=== PATIENT | male | born 1980 | race Caucasian/White ===

== ENCOUNTER 2019-10-30 10:07 | Outpatient (CLI) | payer BC, SELFPAY ==
[2019-10-31 17:22] LABS: COVID-19 RT-PCR Result NEGATIVE (Negative)
== END 2019-10-30 10:27 ==
PROVIDERS: PCP Emergency Medicine; Visit Provider Emergency Medicine
DX: Z11.59 Encounter for screening for other viral diseases (principal)
CPT/HCPCS: U0003

== ENCOUNTER 2020-10-21 10:13 | Outpatient (CLI) | payer BC, SELFPAY ==
[2020-10-21 13:16] LABS: ALT 114 U/L (16-63); AST 35 U/L (15-37); Albumin 4.3 g/dL (3.4-5.0); Alkaline Phosphatase 120 U/L (46-116); Anion Gap 8.6 mmol/L (3-11); BUN 14 mg/dL (7-18); Bilirubin, Total 1.1 mg/dL (0.2-1.0); CO2 28.4 mmol/L (21.0-32.0); Calcium 9.3 mg/dL (8.5-10.1); Calculated LDL 184 mg/dL (<100); Chloride 105 mmol/L (98-107); Cholesterol 261 mg/dL (<200); Ferritin 158 ng/mL (26-388); Glucose 98 mg/dL (74-106); HDL Cholesterol 40 mg/dL (40-60); Potassium 4.2 mmol/L (3.5-5.1); Sodium 142 mmol/L (136-145); Total Protein 7.5 g/dL (6.4-8.2); Triglyceride 185 mg/dL (<150)
== END 2020-10-21 10:14 | disposition home or self-care (01) ==
LOC: LOS 10:13
PROVIDERS: PCP Emergency Medicine; Visit Provider Emergency Medicine
DX: R79.89 Other specified abnormal findings of blood chemistry (principal)
CPT/HCPCS: 36415; 80053; 80061; 82728

== ENCOUNTER 2020-12-02 02:21 | Outpatient (CLI) | payer BC, SELFPAY ==
[2020-12-02 09:14] LABS: Ferritin 166 ng/mL (26-388)
[2020-12-03 12:17] LABS: HBs Antibody, Qual Positive (See Note); Hepatitis B Core Antibody Negative (Negative); Hepatitis B surface Ag Negative (Negative); Hepatitis C Ab w Rflx HCV PCR Negative (Negative)
[2020-12-03 20:39] LABS: Copper, Serum 0.97 mcg/mL (0.75-1.45)
== END 2020-12-02 02:22 | disposition home or self-care (01) ==
LOC: LBO 02:21
PROVIDERS: PCP Emergency Medicine; Visit Provider Emergency Medicine
DX: R94.5 Abnormal results of liver function studies (principal); R79.89 Other specified abnormal findings of blood chemistry
CPT/HCPCS: 36415; 86704; 86706; 86803; 87340; 82525; 82728

== ENCOUNTER 2021-02-25 14:15 | Outpatient (REF) | payer BC, SELFPAY ==
[2021-02-25 15:55] LABS: ALT 242 U/L (16-63); AST 71 U/L (15-37); Albumin 4.4 g/dL (3.4-5.0); Alkaline Phosphatase 157 U/L (46-116); Bilirubin, Direct 0.1 mg/dL (0.0-0.2); Bilirubin, Total 0.8 mg/dL (0.2-1.0); Total Protein 7.6 g/dL (6.4-8.2)
[2021-02-25 16:06] LABS: Calculated LDL 223 mg/dL (<100); Cholesterol 289 mg/dL (<200); HDL Cholesterol 45 mg/dL (40-60); Triglyceride 107 mg/dL (<150)
== END 2021-02-25 14:16 | disposition home or self-care (01) ==
LOC: LBN 14:15
PROVIDERS: PCP Emergency Medicine; Referring Provider Emergency Medicine; Visit Provider Emergency Medicine
DX: R79.89 Other specified abnormal findings of blood chemistry; E78.5 Hyperlipidemia, unspecified
CPT/HCPCS: 80061; 80076

== ENCOUNTER 2021-05-21 01:16 | Outpatient (CLI) | payer BC, SELFPAY ==
[2021-05-21 12:22] LABS: ALT 126 U/L (16-63); AST 41 U/L (15-37); Albumin 4.2 g/dL (3.4-5.0); Bilirubin, Total 0.9 mg/dL (0.2-1.0); Calculated LDL 94 mg/dL (<100); Cholesterol 153 mg/dL (<200); Ferritin 171 ng/mL (26-388); HDL Cholesterol 44 mg/dL (40-60); Triglyceride 76 mg/dL (<150)
[2021-05-21 12:32] LABS: Iron 167 ug/dL (65-175); Total Iron Binding Capacity 335 ug/dL (250-450); Transferrin Sat 50 % (20-55)
[2021-05-21 12:35] LABS: Alkaline Phosphatase 134 U/L (46-116); Bilirubin, Direct 0.2 mg/dL (0.0-0.2)
== END 2021-05-21 01:17 | disposition home or self-care (01) ==
LOC: LBO 01:16
PROVIDERS: PCP Emergency Medicine; Visit Provider Emergency Medicine
DX: E78.5 Hyperlipidemia, unspecified (principal); R79.89 Other specified abnormal findings of blood chemistry
CPT/HCPCS: 36415; 80061; 80076; 82728; 83540; 83550

== ENCOUNTER 2021-08-25 21:15 | Emergency (ER) | payer BC, SELFPAY ==
[2021-08-25 21:22] VITALS: BP 139/94; PULSE 70; RESP 18; TEMP 36.6; O2SAT 99
--- NOTE | 2021-08-25 21:30 | DI.RAD_ITS ---
Exam(s) XR FOREARM LT EXAM: XR FOREARM LT CLINICAL HISTORY: Laceration, R/O Foreign Body. TECHNIQUE: 2D digital imaging was performed. COMPARISON: No exams were available for comparison FINDINGS: Two views No evidence of fracture. No osseous lesions. No radiopaque foreign body. IMPRESSION: No significant findings DATA REPOSITORY: RADIATION DOSE DELIVERED:
--- NOTE | 2021-08-25 21:38 | W.ED.GENAD ---
Discharge Plan Disposition Patient Disposition: HOME Condition: Stable Discharge Details Clinical Impression: Laceration of forearm, left Primary Care Provider: Channing Godinez ED Provider: Marlene Daniels Home Meds and New Rx's Prescriptions: Continued cholecalciferol (vitamin D3) 50 mcg (2,000 unit) capsule 50 mcg PO DAILY 0RF rosuvastatin [Crestor] 10 mg tablet 10 mg PO DAILY Qty: 90 3RF Discharge Instructions Instructions: Laceration (ED) Additional Instructions: Keep clean and dry. After 12 or 24 hours you may wash under running soap and water. Allowed to air dry at least 1 to 2 hours a day. Keep covered if you are outside or working in dirty circumstances. Have sutures removed in 7 days. Return sooner for any signs of infection including increased redness, swelling, increased pain, drainage or concerns. Please take Tylenol or Ibuprofen with food every 4-6 hours as needed for pain and swelling. Follow up with primary care provider in 3-5 days. Return to ED sooner if any worsening or concerns. Increase oral fluids. Referrals: Channing Godinez MD [Primary Care Provider] - Return if symptoms worsen Medical Decision Making 41-year-old male presents to the ER with chief complaint of left forearm laceration which occurred approximately 30 minutes prior to arrival. 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 1 cm linear laceration noted with bleeding controlled. He has full range of motion noted to his wrist and fingers. Circulation sensation intact. Bleeding is controlled upon arrival. Last tetanus vaccination was approximately 9 years ago. Imaging ordered to rule out foreign body. 2141: Wound was anesthetized with 1% lidocaine with epinephrine, patient tolerated well. Tdap ordered. Laceration was repaired with 4-0 Ethilon, 3 simple interrupted sutures placed as noted in the procedure note above. Patient tolerated well. Wound was well approximated. Discussed strict return instructions and home care with patient who verbalizes understanding. This text was generated using Vocabation system, please disregard any oddities of phrase or misspellings. HPI General Mode of arrival: ambulatory. Date/Time Provider Initiated Documentation: 08/25/21 21:20. Limitations to Documentation: no limitations. Information obtained by: patient and RN notes reviewed. HPI Narrative: 41-year-old male presents to the ER with chief complaint of left forearm laceration which occurred approximately 30 minutes prior to arrival. 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 1 cm linear laceration noted with bleeding controlled. He has full range of motion noted to his wrist and fingers. Circulation sensation intact. Bleeding is controlled upon arrival. Last tetanus vaccination was approximately 9 years ago. Related Data Home Medications Medication Instructions Recorded Confirmed cholecalciferol (vitamin D3) 50 50 mcg PO DAILY 01/12/21 07/20/21 mcg (2,000 unit) capsule rosuvastatin 10 mg tablet (Crestor) 10 mg PO DAILY #90 tab 07/01/21 07/20/21 Previous Rx's Medication Instructions Recorded rosuvastatin 10 mg tablet (Crestor) 10 mg PO DAILY #90 tab 07/01/21 Allergies Allergy/AdvReac Type Severity Reaction Status Date / Time No Known Allergies Allergy Verified 07/20/21 09:23 General Stated Complaint: Laceration VITA: 4 Review of Systems All systems reviewed & are unremarkable except as noted in HPI and below Integumentary/Breasts Skin/Breast: Reports wounds PFSH All Active Problems (Updated 08/25/21 @ 22:43 by Marlene Daniels) Laceration of forearm, left (Acute) Cholelithiasis (Acute) Fatty liver disease, nonalcoholic (Acute) Hyperlipidemia (Acute) Right thyroid nodule (Acute) Family history of colon cancer (Acute) Elevated LFTs (Acute) Surgical History H/O removal of cyst Left breast 2003 Family History Mother Essential hypertension Depression Hyperlipidemia Father Colon polyp Sessile serrated adenoma (2010) Tubular adenoma (2009, 2013 ) Hyperplastic 2017 Grandfather Essential hypertension Gastric ulcer with hemorrhage Grandfather Personal history of malignant neoplasm prostate Grandmother Depression Stroke Grandmother Heart disease Maternal Aunt Personal history of malignant neoplasm colon Paternal Aunt , at 51 Colon cancer Social History Smoking/Tobacco Use Status: Never Second Hand Exposure: No Smoking risk assessment performed?: Yes Alcohol Intake: never Drug use: Never Substance use type: does not use Caregiver/Support person: No Household members: spouse and children Housing: house Communication Needs: None Do you need help understanding health information?: Never Pets and animals: Yes Pets and animals: cat(s) Sexually active: Yes Do you think of yourself as: straight/heterosexual Current gender identity: male What is your relationship status?: How often do you talk on the phone with friends or family?: three or more times per week How often do you get together with friends or relatives?: once per week Do you belong to any clubs or organized social groups?: no Panel score (0-1 are the most socially isolated patients): 2 What type of physical activity do you participate in: walking Duration: 45-60 minutes/day Frequency: 3-4 times per week Makayla/Jehovah'S Witness: No preference Special makayla needs: No Seatbelt use: always Helmet use: Yes Helmet use: always Drive intox or ride w/intox airport driver: No Do you feel safe at home: Yes Do you feel safe in your relationship?: Yes Exam Narrative Exam Narrative: Constitutional: Alert and oriented x3. Appears stated age. Normal body habitus. Head: Normocephalic, no trauma. Posterior pharynx WNL, no exudate. Chest: RRR, Normal S1, S2, distal pulses intact. Resp: Lungs clear to auscultation bilaterally, no wheezes, rales, or rhonchi. Musculoskeletal: Normal gait, 5/5 strength to all four extremities. Skin: See extremity exam below. Capillary refill less than 2 sec. Extrem Left upper extremity: elbow/forearm Details: laceration forearm mid anterior Details: linear, involving subcutaneous tissue, with motor nerve function intact and with sensation intact Elbow/forearm/wrist images: 1. Approximately 1 cm laceration Course Vital Signs Vital signs: Vital Signs Temperature 36.6 C 08/25/21 21: Pulse 70 08/25/21 21: Respiratory Rate 18 08/25/21 21: Blood Pressure 139/94 H 08/25/21 21: Pulse Oximetry 99 08/25/21 21: Temperature 36.6 C 08/25/21 21: Temperature Source Tympanic 08/25/21 21: Pulse 70 08/25/21 21:22 Respiratory Rate 18 03/16/22 21:22 Respiratory Effort 08/25/21 21:24 Blood Pressure 139/94 H 08/25/21 21:22 Blood Pressure Position Supine 08/25/21 21:22 Pulse Oximetry 99 08/25/21 21:22 Oxygen Delivery Method Room Air 08/25/21 21:22 Oxygen Flow Rate 0 08/25/21 21:22 Pain Level 6 08/25/21 21:22 Procedures Laceration Laceration 1: Site: upper extremity Side (If applicable): left Size (cm): 1 Description: linear Depth: simple, single layer Local Anesthetic: Lidocaine 1% and with Epi Amount of anesthesia used (mL): 2 Pre-repair: wound explored, irrigated extensively and deep structures intact Skin layer closed with: nylon Size (cm): 4-0 Number of sutures: 3 Technique: simple, interrupted (Wound was irrigated with sterile normal saline and cleaned with chlorhexidine, patient tolerated well)
--- NOTE | 2021-08-25 23:10 | DI.VRAD_ITS ---
PROCEDURE INFORMATION: Exam: XR Left Forearm Exam date and time: 08/25/2021 9:32 PM Age: 41 years old Clinical indication: Injury or trauma; Other: Injury from cooking knife; Arm, lower; Left; Injury date: 08/25/21; Injury details: Laceration, R/O fb TECHNIQUE: Imaging protocol: XR Left forearm. Views: 2 views. COMPARISON: No relevant prior studies available. FINDINGS: Bones/joints: No suspicious osseous lytic or blastic lesion. No discrete or displaced fracture. No joint dislocation. Soft tissues: Soft tissue edema along the ventral aspect of the mid to distal forearm. No radiopaque retained foreign body. IMPRESSION: No radiopaque retained foreign body. Dictated and Authenticated by: Ramón Lee MD. Ordering:FRANCO Rosario MD
== END 2021-08-25 22:47 | disposition home or self-care (01) ==
PROVIDERS: Emergency Provider Registered Nurse Emergency; PCP Family Medicine
DX: S61.512A Laceration without foreign body of left wrist, initial encounter (principal); W26.0XXA Contact with knife, initial encounter
CPT/HCPCS: 12001; 90471; 99284; 73090; 99282

== ENCOUNTER 2021-10-06 04:43 | Outpatient (CLI) | payer BC, SELFPAY ==
[2021-10-06 08:58] LABS: Abs Immature Grans 0.03 10^3/uL (0.0-0.06); Absolute Basophil Count 0.05 10^3/uL (0.0-0.2); Absolute Eosinophil Count 0.12 10^3/uL (0.0-0.7); Absolute Lymphocyte Count 2.39 10^3/uL (1.2-3.4); Absolute Monocyte Count 0.71 10^3/uL (0.1-0.8); Absolute Neutrophil Count 5.51 10^3/uL (1.2-6.7); Basophils % 0.6; Eosinophils % 1.4; HCT 45.2 % (40.0-50.0); HGB 15.3 g/dL (13.5-17.5); Immature Grans % 0.3; Lymphocytes % 27.1; MCH 29.4 pg (27.0-33.0); MCHC 33.8 % (32.0-36.0); MCV 86.9 fL (80-95); MPV 9.4 fL (8.0-11.0); Monocytes % 8.1; Neutrophils % 62.5; Platelet Count 192 10^3/uL (130-400); RDW 12.4 % (11.8-14.1); RDW-SD 39.5 fL; WBC 8.81 10^3/uL (4.4-10.8)
[2021-10-06 10:17] LABS: ALT 106 U/L (16-63); AST 33 U/L (15-37); Albumin 4.2 g/dL (3.4-5.0); Alkaline Phosphatase 138 U/L (46-116); Bilirubin, Direct 0.2 mg/dL (0.0-0.2); Bilirubin, Total 0.9 mg/dL (0.2-1.0); Total Protein 7.3 g/dL (6.4-8.2)
== END 2021-10-06 04:44 | disposition home or self-care (01) ==
LOC: LBO 04:43
PROVIDERS: PCP Family Medicine; Visit Provider Physician Assistant Medical
DX: K76.0 Fatty (change of) liver, not elsewhere classified (principal)
CPT/HCPCS: 36415; 80076; 85025

== ENCOUNTER 2022-03-30 02:16 | Outpatient (CLI) | payer BC, SELFPAY ==
[2022-03-30 08:47] LABS: Abs Immature Grans 0.01 10^3/uL (0.0-0.06); Absolute Basophil Count 0.06 10^3/uL (0.0-0.2); Absolute Eosinophil Count 0.16 10^3/uL (0.0-0.7); Absolute Lymphocyte Count 2.54 10^3/uL (1.2-3.4); Absolute Monocyte Count 0.64 10^3/uL (0.1-0.8); Absolute Neutrophil Count 3.77 10^3/uL (1.2-6.7); Basophils % 0.8; Eosinophils % 2.2; HCT 42.5 % (40.0-50.0); HGB 14.6 g/dL (13.5-17.5); Immature Grans % 0.1; Lymphocytes % 35.4; MCH 29.9 pg (27.0-33.0); MCHC 34.4 % (32.0-36.0); MCV 87 fL (80-95); MPV 9.4 fL (8.0-11.0); Monocytes % 8.9; Neutrophils % 52.6; Platelet Count 168 10^3/uL (130-400); RBC 4.89 10^6/uL (4.36-5.78); RDW 12.1 % (11.8-14.1); WBC 7.18 10^3/uL (4.4-10.8)
[2022-03-30 09:29] LABS: ALT 80 U/L (16-63); AST 34 U/L (15-37); Albumin 4.1 g/dL (3.4-5.0); Alkaline Phosphatase 99 U/L (46-116); BUN 10 mg/dL (7-18); Bilirubin, Total 1.1 mg/dL (0.2-1.0); CREATININE 0.9 mg/dL (0.70-1.30); Calculated LDL 72 mg/dL (<100); Chloride 106 mmol/L (98-107); Cholesterol 129 mg/dL (<200); Estimated GFR 110.73 (mL/min/1.73m2); Glucose 101 mg/dL (74-106); HDL Cholesterol 43 mg/dL (40-60); Potassium 4.1 mmol/L (3.5-5.1); Sodium 141 mmol/L (136-145); Total Protein 7.1 g/dL (6.4-8.2); Triglyceride 72 mg/dL (<150)
== END 2022-03-30 02:17 | disposition home or self-care (01) ==
PROVIDERS: PCP Nurse Practitioner Family; Visit Provider Physician Assistant Medical
DX: K76.0 Fatty (change of) liver, not elsewhere classified (principal); E78.5 Hyperlipidemia, unspecified
CPT/HCPCS: 36415; 80053; 80061; 85025

== ENCOUNTER 2022-11-14 03:28 | Outpatient (CLI) | payer BC, SELFPAY ==
[2022-11-14 10:54] LABS: Abs Immature Grans 0.04 10^3/uL (0.0-0.06); Absolute Basophil Count 0.04 10^3/uL (0.0-0.2); Absolute Eosinophil Count 0.15 10^3/uL (0.0-0.7); Absolute Lymphocyte Count 2.45 10^3/uL (1.2-3.4); Absolute Monocyte Count 0.67 10^3/uL (0.1-0.8); Basophils % 0.5; Eosinophils % 1.9; HCT 44.8 % (40.0-50.0); HGB 15.1 g/dL (13.5-17.5); Immature Grans % 0.5; Lymphocytes % 30.8; MCH 29.4 pg (27.0-33.0); MCHC 33.7 % (32.0-36.0); MCV 87 fL (80-95); MPV 9.1 fL (8.0-11.0); Monocytes % 8.4; Neutrophils % 57.9; Platelet Count 167 10^3/uL (130-400); RBC 5.14 10^6/uL (4.36-5.78); RDW 12.3 % (11.8-14.1); RDW-SD 39.4 fL; WBC 7.95 10^3/uL (4.4-10.8)
[2022-11-14 11:43] LABS: ALT 68 U/L (16-63); AST 34 U/L (15-37); Alkaline Phosphatase 83 U/L (46-116); Anion Gap 6.5 mmol/L (3-11); BUN 12 mg/dL (7-18); Bilirubin, Total 0.6 mg/dL (0.2-1.0); CO2 29.5 mmol/L (21.0-32.0); CREATININE 0.8 mg/dL (0.70-1.30); Calcium 8.7 mg/dL (8.5-10.1); Calculated LDL 97 mg/dL (<100); Chloride 107 mmol/L (98-107); Cholesterol 154 mg/dL (<200); Estimated GFR 114.02 (mL/min/1.73m2); Glucose 101 mg/dL (74-106); HDL Cholesterol 47 mg/dL (40-60); Potassium 4.4 mmol/L (3.5-5.1); Sodium 143 mmol/L (136-145); TSH (W/Ref FT4) 1.81 uIU/mL (0.36-3.74); Total Protein 7.3 g/dL (6.4-8.2); Triglyceride 50 mg/dL (<150)
== END 2022-11-14 03:29 | disposition home or self-care (01) ==
PROVIDERS: PCP Nurse Practitioner Family; Visit Provider Physician Assistant Medical
DX: E04.1 Nontoxic single thyroid nodule (principal); E78.5 Hyperlipidemia, unspecified; I10 Essential (primary) hypertension; K76.0 Fatty (change of) liver, not elsewhere classified
CPT/HCPCS: 36415; 80053; 80061; 84443; 85025

== ENCOUNTER 2023-12-01 01:43 | Outpatient (CLI) | payer BC, SELFPAY ==
[2023-12-01 09:31] LABS: Hemoglobin A1C 5.6 % (<5.7)
[2023-12-01 10:06] LABS: ALT 118 U/L (16-63); AST 40 U/L (15-37); Albumin 4.1 g/dL (3.4-5.0); Alkaline Phosphatase 131 U/L (46-116); Anion Gap 7.9 mmol/L (3-11); BUN 14 mg/dL (7-18); Bilirubin, Total 1.11 mg/dL (0.2-1.0); CO2 30.1 mmol/L (21.0-32.0); CREATININE 0.9 mg/dL (0.70-1.30); Calculated LDL 106 mg/dL (<100); Chloride 103 mmol/L (98-107); Cholesterol 163 mg/dL (<200); Estimated GFR 109.36 (mL/min/1.73m2); Glucose 98 mg/dL (74-106); HDL Cholesterol 43 mg/dL (40-60); Potassium 4.1 mmol/L (3.5-5.1); Sodium 141 mmol/L (136-145); Total Protein 7.7 g/dL (6.4-8.2); Triglyceride 71 mg/dL (<150)
== END 2023-12-01 01:44 | disposition home or self-care (01) ==
PROVIDERS: PCP Nurse Practitioner Family; Visit Provider Nurse Practitioner Family
DX: E78.5 Hyperlipidemia, unspecified (principal); K76.0 Fatty (change of) liver, not elsewhere classified; Z13.1 Encounter for screening for diabetes mellitus
CPT/HCPCS: 36415; 80053; 80061; 83036

== ENCOUNTER 2024-12-09 02:12 | Outpatient (CLI) | payer BC, SELFPAY ==
[2024-12-09 12:46] LABS: ALT 128 U/L (16-63); AST 61 U/L (15-37); Albumin 4.1 g/dL (3.4-5.0); Alkaline Phosphatase 98 U/L (46-116); Anion Gap 5.4 mmol/L (3-11); BUN 13 mg/dL (7-18); Bilirubin, Total 1.3 mg/dL (0.2-1.0); CO2 30.6 mmol/L (21.0-32.0); CREATININE 0.8 mg/dL (0.70-1.30); Calcium 8.9 mg/dL (8.5-10.1); Calculated LDL 101 mg/dL (<100); Chloride 105 mmol/L (98-107); Cholesterol 156 mg/dL (<200); Estimated GFR 112.61 (mL/min/1.73m2); Glucose 99 mg/dL (74-106); HDL Cholesterol 42 mg/dL (>or=40); Potassium 4.2 mmol/L (3.5-5.1); Sodium 141 mmol/L (136-145); TSH (W/Ref FT4) 2.08 uIU/mL (0.36-3.74); Total Protein 7.3 g/dL (6.4-8.2); Triglyceride 68 mg/dL (<150)
== END 2024-12-09 02:13 | disposition home or self-care (01) ==
LOC: LOS 02:12
PROVIDERS: PCP Nurse Practitioner Family; Visit Provider Nurse Practitioner Family
DX: E78.5 Hyperlipidemia, unspecified (principal); E04.1 Nontoxic single thyroid nodule
CPT/HCPCS: 36415; 80053; 80061; 84443